=== PATIENT | female | born 1990 | race Hispanic/Latino ===

== ENCOUNTER 2017-12-29 14:28 | Emergency (ER) | payer BC ==
[2017-12-29 15:17] LABS: Hematocrit 41.7 % (30.3-42.9); Hemoglobin 13.7 gm/dl (10.1-14.3); Mean Corpuscular HGB Conc 33 % (30-34); Mean Corpuscular Hemoglobin 27 pg (28-32); Mean Corpuscular Volume 83 fl (79-97); Platelet Count 461 K/mm3 (140-440); Red Blood Count 5.03 M/mm3 (3.65-5.03); Red Cell Distribution Width 14.1 % (13.2-15.2)
[2017-12-29 15:29] LABS: Bacteria,Urine 1+ /HPF (Negative); Bilirubin,Urine NEG (Negative); Blood,Urine NEG (Negative); Color,Urine Straw (Yellow); Protein,Urine <15 mg/dL mg/dL (Negative); Urobilinogen,Urine < 2.0 mg/dL (<2.0)
[2017-12-29 15:33] LABS: BUN/Creatinine Ratio 15; Blood Urea Nitrogen 9 mg/dL (7-17); Calcium 9.2 mg/dL (8.4-10.2); Hemolysis Index 4
--- NOTE | 2017-12-29 18:56 | Ultrasound Report ---
FINAL REPORT PROCEDURE: Transabdominal obstetrical ultrasound. TECHNIQUE: Real-time transabdominal sonography of the uterus, placenta, amniotic fluid, adnexa, and fetus was performed with image documentation. Measurements were obtained to determine age/size. M-mode Doppler was used to document heartbeat. CPT 21498 HISTORY: Pelvic pain with . COMPARISON: No prior studies are available for comparison. FINDINGS: The uterus measures 8.9 centimeters x 4.7 centimeters x 6.0 centimeters. The myometrium appears normal. The endometrial echo complex measures 1.3 centimeters. There is no evidence of an intrauterine gestational sac. Correlation with a quantitative beta HCG value is recommended. There are 2 small cysts in the left ovary. The right ovary is unremarkable. There is no fluid in the cul-de-sac. IMPRESSION: No evidence of an intrauterine by transabdominal imaging. Two small left ovarian cysts.
--- NOTE | 2017-12-29 19:00 | Ultrasound Report ---
FINAL REPORT PROCEDURE: Transvaginal obstetrical ultrasound. TECHNIQUE: Real-time transvaginal sonography of the uterus, placenta, amniotic fluid, adnexa, and fetus was performed with image documentation. Measurements were obtained to determine age/size. M-mode Doppler was used to document heartbeat. CPT 62160 HISTORY: Pelvic pain with . COMPARISON: No prior studies are available for comparison. FINDINGS: The uterus appears normal in size. The myometrium appears uniform. The endometrial echo complex is thickened measuring 2.1 centimeters. There is no evidence of an intrauterine gestational sac. Correlation with a quantitative beta HCG value is recommended. There is a complex mass in the right ovary measuring 2.4 centimeters in maximum dimension. This could represent a corpus luteum. There are 2 smaller cysts in the right ovary. The left ovary contains 2 small simple cysts. There is no fluid in the cul-de-sac. IMPRESSION: No evidence of an intrauterine gestational sac. Bilateral ovarian cysts. Question corpus luteum in the right ovary. Clinical correlation and possible follow-up imaging suggested.
--- NOTE | 2017-12-30 00:15 | Emergency Department Report ---
ED Female HPI - General Chief complaint: Abdominal Pain Stated complaint: ATOPIC Time Seen by Provider: 12/29/17 23:52 Source: patient Mode of arrival: Ambulatory Limitations: No Limitations - History of Present Illness Initial comments: Patient is a 27-year-old female who is sent in from clinic with the possibility of ectopic . Patient had ultrasound done today that was suggestive of possible ectopic. Patient has no pain vaginal bleeding at this time. Patient states that she did have a miscarriage at 6 weeks approximately month and a half ago but has had negative for privacy tests in the interim and that her new positive test as a new . - Related Data Allergies Allergy/AdvReac Type Severity Reaction Status Date / Time Penicillins Allergy Unknown Verified 12/29/17 14:45 ED Review of Systems ROS: Stated complaint: ATOPIC Other details as noted in HPI Comment: All other systems reviewed and negative ED Past Medical Hx - Past Medical History Previous Medical History?: Yes Hx Asthma: Yes - Social History Smoking Status: Never Smoker Substance Use Type: Alcohol ED Physical Exam - General Limitations: No Limitations General appearance: alert, in no apparent distress - Head Head exam: Present: atraumatic, normocephalic - Eye Eye exam: Present: normal appearance - ENT ENT exam: Present: mucous membranes moist - Neck Neck exam: Present: normal inspection - Respiratory Respiratory exam: Present: normal lung sounds bilaterally. Absent: respiratory distress, wheezes, rales - Cardiovascular Cardiovascular Exam: Present: regular rate, normal rhythm. Absent: systolic murmur, diastolic murmur, rubs, gallop - GI/Abdominal GI/Abdominal exam: Present: soft, normal bowel sounds. Absent: distended, tenderness, guarding, rebound - Extremities Exam Extremities exam: Present: normal inspection - Back Exam Back exam: Present: normal inspection - Neurological Exam Neurological exam: Present: alert, oriented X3 - Psychiatric Psychiatric exam: Present: normal affect, normal mood - Skin Skin exam: Present: warm, dry, intact, normal color. Absent: rash ED Course Vital Signs 12/29/17 14:43 Temperature 98.6 F Pulse Rate 102 H Respiratory 16 Rate Blood Pressure 120/80 O2 Sat by Pulse 97 Oximetry ED Medical Decision Making - Lab Data Result diagrams: 12/29/17 14:53 12/29/17 14:53 Lab Results 12/29/17 12/29/17 12/29/17 Range/Units 14:45 14:53 14:53 WBC 14.7 H (4.5-11.0) K/mm3 RBC 5.03 (3.65-5.03) M/mm3 Hgb 13.7 (10.1-14.3) gm/dl Hct 41.7 (30.3-42.9) % MCV 83 (79-97) fl MCH 27 L (28-32) pg MCHC 33 (30-34) % RDW 14.1 (13.2-15.2) % Plt Count 461 H (140-440) K/mm3 Sodium 137 (137-145) mmol/L Potassium 4.0 (3.6-5.0) mmol/L Chloride 101.2 (98-107) mmol/L Carbon Dioxide 24 (22-30) mmol/L Anion Gap 16 mmol/L BUN 9 (7-17) mg/dL Creatinine 0.6 L (0.7-1.2) mg/dL Estimated GFR > 60 ml/min BUN/Creatinine Ratio 15 % Glucose 83 (65-100) mg/dL Calcium 9.2 (8.4-10.2) mg/dL HCG, Quant (0-4) mIU/mL Urine Color Straw (Yellow) Urine Turbidity Clear (Clear) Urine pH 6.0 (5.0-7.0) Ur Specific Leroy 1.004 (1.003-1.030) Urine Protein <15 mg/dl (Negative) mg/dL Urine Glucose (UA) Neg (Negative) mg/dL Urine Ketones Neg (Negative) mg/dL Urine Blood Neg (Negative) Urine Nitrite Neg (Negative) Urine Bilirubin Neg (Negative) Urine Urobilinogen < 2.0 (<2.0) mg/dL Ur Leukocyte Esterase Neg (Negative) Urine WBC (Auto) 1.0 (0.0-6.0) /HPF Urine RBC (Auto) 2.0 (0.0-6.0) /HPF U Epithel Cells (Auto) < 1.0 (0-13.0) /HPF Urine Bacteria (Auto) 1+ (Negative) /HPF 12/29/17 Range/Units 14:53 WBC (4.5-11.0) K/mm3 RBC (3.65-5.03) M/mm3 Hgb (10.1-14.3) gm/dl Hct (30.3-42.9) % MCV (79-97) fl MCH (28-32) pg MCHC (30-34) % RDW (13.2-15.2) % Plt Count (140-440) K/mm3 Sodium (137-145) mmol/L Potassium (3.6-5.0) mmol/L Chloride (98-107) mmol/L Carbon Dioxide (22-30) mmol/L Anion Gap mmol/L BUN (7-17) mg/dL Creatinine (0.7-1.2) mg/dL Estimated GFR ml/min BUN/Creatinine Ratio % Glucose (65-100) mg/dL Calcium (8.4-10.2) mg/dL HCG, Quant 212.2 H (0-4) mIU/mL Urine Color (Yellow) Urine Turbidity (Clear) Urine pH (5.0-7.0) Ur Specific Leroy (1.003-1.030) Urine Protein (Negative) mg/dL Urine Glucose (UA) (Negative) mg/dL Urine Ketones (Negative) mg/dL Urine Blood (Negative) Urine Nitrite (Negative) Urine Bilirubin (Negative) Urine Urobilinogen (<2.0) mg/dL Ur Leukocyte Esterase (Negative) Urine WBC (Auto) (0.0-6.0) /HPF Urine RBC (Auto) (0.0-6.0) /HPF U Epithel Cells (Auto) (0-13.0) /HPF Urine Bacteria (Auto) (Negative) /HPF - Radiology Data She has no evidence of IUP present on ultrasound. There are bilateral small ovarian cyst and a possible right corpus luteal cyst. - Medical Decision Making Patient is 27-year-old female presenting with possibility of ectopic . The clinic that did her ultrasound earlier most likely was seeing the patient's copious luteal cyst and ovarian cyst and because they did not have a beta Quant stated that the patient could've had an ectopic . At the Quant of 212 and the structures being seen most likely not related. The patient again has no pain no vaginal bleeding and is in no distress. Patient will be discharged home. Be seen in approximately a week for repeat Quant is to make sure is developing in normal fashion and also to be reevaluated for evidence of IUP. Critical care attestation.: If time is entered above; I have spent that time in minutes in the direct care of this critically ill patient, excluding procedure time. ED Disposition Clinical Impression: Early stage of Disposition: DC-01 TO HOME OR SELFCARE Is pt being admited?: No Does the pt Need Aspirin: No Condition: Stable Additional Instructions: Your beta Quant today was 212. Please be seen in approximately 1 week for repeat lab tests. If this test is over 2000 he also will need to have a an ultrasound. If you develop any pain or vaginal bleeding in the interim please do not hesitate to come back to the emergency department. Referrals: PRIMARY CARE, [Primary Care Provider] - 3-5 Days
[2017-12-30 00:26] VITALS: BP 118/78
== END 2017-12-30 00:25 | disposition home or self-care (01) ==
LOC: ED 14:28
DX: Z34.01 Encounter for supervision of normal first pregnancy, first trimester (principal); J45.909 Unspecified asthma, uncomplicated; Z88.0 Allergy status to penicillin
CPT/HCPCS: 36415; 76801; 76817; 80048; 81001; 84702; 85027